=== PATIENT | male | born 1970 | race American Indian/Alaskan Native ===

== ENCOUNTER 2017-09-23 11:06 | Inpatient (IN) | payer SELFPAY ==
--- NOTE | 2017-09-23 12:31 | Emergency Department Report ---
ED General Adult HPI - General Chief complaint: High BP Stated complaint: HIGH BP Time Seen by Provider: 09/23/17 11:37 Source: patient Mode of arrival: Ambulatory Limitations: No Limitations - History of Present Illness Initial comments: mr Reynolds is a 47 year-old man with hx of HTN who presents from home with left arm weakness. Onset 130am. Was using intranasal cocaine/methamphetamine when symptoms began. left arm and leg tingling. left arm weakness. Left facial tingling. Denies any trouble speaking. Now with isoalted left arm weakness, other symptoms have resolved. No FISHMAN. No chest pain. No shortness of breath. Has been prescribed amlodipine 10mg and albuterol inhaler in the past, but has been out since moving to [facility] two months ago. No other complaints. -: Sudden - Related Data Allergies Allergy/AdvReac Type Severity Reaction Status Date / Time No Known Allergies Allergy Unverified 09/23/17 11:09 ED Review of Systems ROS: Stated complaint: HIGH BP Other details as noted in HPI Comment: All other systems reviewed and negative ED Past Medical Hx - Past Medical History Hx Hypertension: Yes Hx Asthma: Yes - Surgical History Past Surgical History?: No - Social History Smoking Status: Never Smoker Substance Use Type: Alcohol, Cocaine, Methamphetamines ED Physical Exam - General Limitations: No Limitations General appearance: alert, in no apparent distress - Head Head exam: Present: atraumatic, normocephalic - Eye Eye exam: Present: normal appearance, PERRL, EOMI. Absent: scleral icterus, conjunctival injection - ENT ENT exam: Present: normal exam, normal orophraynx, mucous membranes moist - Neck Neck exam: Present: normal inspection, full ROM. Absent: tenderness, meningismus - Respiratory Respiratory exam: Present: normal lung sounds bilaterally. Absent: respiratory distress, wheezes, rales - Cardiovascular Cardiovascular Exam: Present: normal rhythm, tachycardia. Absent: systolic murmur, diastolic murmur, rubs, gallop - GI/Abdominal GI/Abdominal exam: Present: soft. Absent: distended, tenderness, guarding - Rectal Rectal exam: Present: deferred - Extremities Exam Extremities exam: Present: normal inspection, other (isolated left radial nerve motor palsy). Absent: tenderness - Back Exam Back exam: Present: normal inspection. Absent: tenderness - Neurological Exam Neurological exam: Present: alert, oriented X3, CN II-XII intact, motor sensory deficit, other (NIHSS 0. isolated left radial motor palsy. normal UE exam, no drift). Absent: altered - Psychiatric Psychiatric exam: Present: normal affect, normal mood - Skin Skin exam: Present: warm, dry, intact, normal color. Absent: rash ED Course Vital Signs 09/23/17 11:09 Temperature 98.1 F Pulse Rate 116 H Respiratory 18 Rate Blood Pressure 179/96 O2 Sat by Pulse 96 Oximetry ED Medical Decision Making - Lab Data Result diagrams: 09/23/17 13:50 09/23/17 13:50 Lab Results 09/23/17 09/23/17 09/23/17 Range/Units 12:36 13:04 13:50 WBC 6.4 (4.5-11.0) K/mm3 RBC 3.97 (3.65-5.03) M/mm3 Hgb 12.9 (11.8-15.2) gm/dl Hct 38.2 (35.5-45.6) % MCV 96 H (84-94) fl MCH 32 (28-32) pg MCHC 34 (32-34) % RDW 13.2 (13.2-15.2) % Plt Count 220 (140-440) K/mm3 Lymph % (Auto) 23.3 (13.4-35.0) % [place] % (Auto) 11.8 H (0.0-7.3) % Eos % (Auto) 0.1 (0.0-4.3) % Baso % (Auto) 0.6 (0.0-1.8) % Lymph # 1.5 (1.2-5.4) K/mm3 [place] # 0.8 (0.0-0.8) K/mm3 Eos # 0.0 (0.0-0.4) K/mm3 Baso # 0.0 (0.0-0.1) K/mm3 Seg Neutrophils % 64.2 (40.0-70.0) % Seg Neutrophils # 4.1 (1.8-7.7) K/mm3 PT (12.2-14.9) Sec. INR (0.87-1.13) Sodium (137-145) mmol/L Potassium (3.6-5.0) mmol/L Chloride (98-107) mmol/L Carbon Dioxide (22-30) mmol/L Anion Gap mmol/L BUN (9-20) mg/dL Creatinine (0.8-1.5) mg/dL Estimated GFR ml/min BUN/Creatinine Ratio % Glucose (75-100) mg/dL Calcium (8.4-10.2) mg/dL Total Bilirubin (0.1-1.2) mg/dL AST (5-40) units/L ALT (7-56) units/L Alkaline Phosphatase (35-129) units/L Troponin T (0.00-0.029) ng/mL Total Protein (6.3-8.2) g/dL Albumin (3.9-5) g/dL Albumin/Globulin Ratio % Urine Color Yellow (Yellow) Urine Turbidity Clear (Clear) Urine pH 5.0 (5.0-7.0) Ur Specific [place] 1.014 (1.003-1.030) Urine Protein 30 mg/dl (Negative) mg/dL Urine Glucose (UA) Neg (Negative) mg/dL Urine Ketones Tr (Negative) mg/dL Urine Blood Neg (Negative) Urine Nitrite Neg (Negative) Urine Bilirubin Neg (Negative) Urine Urobilinogen < 2.0 (<2.0) mg/dL Ur Leukocyte Esterase Neg (Negative) Urine WBC (Auto) 1.0 (0.0-6.0) /HPF Urine RBC (Auto) 3.0 (0.0-6.0) /HPF Urine Mucus Few /HPF Urine Opiates Screen Presumptive negative Urine Methadone Screen Presumptive negative Ur Barbiturates Screen Presumptive negative Ur Phencyclidine Scrn Presumptive negative Ur Amphetamines Screen Presumptive negative U Benzodiazepines Scrn Presumptive negative Urine Cocaine Screen Presumptive positive U Marijuana (THC) Screen Presumptive negative Drugs of Abuse Note Disclamer Plasma/Serum Alcohol (0-0.07) % 09/23/17 09/23/17 09/23/17 Range/Units 13:50 13:50 13:50 WBC (4.5-11.0) K/mm3 RBC (3.65-5.03) M/mm3 Hgb (11.8-15.2) gm/dl Hct (35.5-45.6) % MCV (84-94) fl MCH (28-32) pg MCHC (32-34) % RDW (13.2-15.2) % Plt Count (140-440) K/mm3 Lymph % (Auto) (13.4-35.0) % [place] % (Auto) (0.0-7.3) % Eos % (Auto) (0.0-4.3) % Baso % (Auto) (0.0-1.8) % Lymph # (1.2-5.4) K/mm3 [place] # (0.0-0.8) K/mm3 Eos # (0.0-0.4) K/mm3 Baso # (0.0-0.1) K/mm3 Seg Neutrophils % (40.0-70.0) % Seg Neutrophils # (1.8-7.7) K/mm3 PT 12.6 (12.2-14.9) Sec. INR 0.90 (0.87-1.13) Sodium 140 (137-145) mmol/L Potassium 4.4 (3.6-5.0) mmol/L Chloride 97.7 L (98-107) mmol/L Carbon Dioxide 22 (22-30) mmol/L Anion Gap 25 mmol/L BUN 11 (9-20) mg/dL Creatinine 0.9 (0.8-1.5) mg/dL Estimated GFR > 60 ml/min BUN/Creatinine Ratio 12 % Glucose 77 (75-100) mg/dL Calcium 9.6 (8.4-10.2) mg/dL Total Bilirubin 0.90 (0.1-1.2) mg/dL AST 48 H (5-40) units/L ALT 37 (7-56) units/L Alkaline Phosphatase 82 (35-129) units/L Troponin T < 0.010 (0.00-0.029) ng/mL Total Protein 7.5 (6.3-8.2) g/dL Albumin 4.0 (3.9-5) g/dL Albumin/Globulin Ratio 1.1 % Urine Color (Yellow) Urine Turbidity (Clear) Urine pH (5.0-7.0) Ur Specific [place] (1.003-1.030) Urine Protein (Negative) mg/dL Urine Glucose (UA) (Negative) mg/dL Urine Ketones (Negative) mg/dL Urine Blood (Negative) Urine Nitrite (Negative) Urine Bilirubin (Negative) Urine Urobilinogen (<2.0) mg/dL Ur Leukocyte Esterase (Negative) Urine WBC (Auto) (0.0-6.0) /HPF Urine RBC (Auto) (0.0-6.0) /HPF Urine Mucus /HPF Urine Opiates Screen Urine Methadone Screen Ur Barbiturates Screen Ur Phencyclidine Scrn Ur Amphetamines Screen U Benzodiazepines Scrn Urine Cocaine Screen U Marijuana (THC) Screen Drugs of Abuse Note Plasma/Serum Alcohol 0.07 (0-0.07) % - EKG Data 09/23/17 13:11 HR 73, sinus, normal axis, intervals wnl, no ST changes concerning for acute ischemia, no previous - Radiology Data Radiology results: report reviewed, image reviewed FINAL REPORT EXAM: CT HEAD/BRAIN WO CON HISTORY: TIA TECHNIQUE: CT examination of the head without IV contrast PRIORS: None. FINDINGS: No acute air-fluid level visualized in the included air-filled sinuses. Bone windows demonstrate no acute fracture. The brain is without mass, mass effect, hemorrhage, or acute infarct. There is no extra-axial intracranial bleed, brain bleed, or midline shift. The ventricles and sulci are age-appropriate. IMPRESSION: No acute CVA, intracranial bleed, or brain mass - Medical Decision Making Mr Reynolds is a 47 year-old man with hx of HTN who presents with left arm weakness. using cocaine/amphetamine last night around 130 when he has onset of left sided tingling, left arm weakness. On exam, tachycardic, NIHSS 0 but with left radial nerve palsy. Reports sleeping in bed with nothing under his left arm. Suspect this is CVA TIA peripheral neuropraxia vs electrolyte derangement vs drug intoxication. ordering CT head, EKG, labs. CT head without abnormality. EKG non-ischemic. Trop neg. Lytes with mild hypoCl otherwise unremarkable. normal kidney function. normal CBC. UDS with cocaine. Alcohol 0.07. remains with left radial nerve deficit. Spoke with Dr Shay, Neurology. Recommends admission for TIA work-up. Could be small motor cortex stroke vs peripheral nerve injury vs TIA. Giving amlodipine 10mg, previous home med and aspirin. Critical care attestation.: If time is entered above; I have spent that time in minutes in the direct care of this critically ill patient, excluding procedure time. ED Disposition Clinical Impression: Focal neurological deficit TIA (transient ischemic attack) Qualifiers: Transient cerebral ischemia type: unspecified Qualified Code(s): G45.9 - Transient cerebral ischemic attack, unspecified Disposition: DC-09 OP ADMIT IP TO THIS HOSP Is pt being admited?: Yes Condition: Stable Instructions: Transient Ischemic Attack (ED) Referrals: PRIMARY CARE,MD [Primary Care Provider] - 3-5 Days
--- NOTE | 2017-09-23 12:42 | Cat Scan Report ---
FINAL REPORT EXAM: CT HEAD/BRAIN WO CON HISTORY: TIA TECHNIQUE: CT examination of the head without IV contrast PRIORS: None. FINDINGS: No acute air-fluid level visualized in the included air-filled sinuses. Bone windows demonstrate no acute fracture. The brain is without mass, mass effect, hemorrhage, or acute infarct. There is no extra-axial intracranial bleed, brain bleed, or midline shift. The ventricles and sulci are age-appropriate. IMPRESSION: No acute CVA, intracranial bleed, or brain mass
[2017-09-23 13:23] LABS: Bilirubin,Urine NEG (Negative); Blood,Urine NEG (Negative); Color,Urine Yellow (Yellow); Mucus,Urine FEW /HPF; Urobilinogen,Urine < 2.0 mg/dL (<2.0)
[2017-09-23 13:33] LABS: Amphetamine Screen,Urine PRESUMPTIVE NEGATIVE; Benzodiazepines Screen,Urine PRESUMPTIVE NEGATIVE; Cannabinoid Screen,Urine PRESUMPTIVE NEGATIVE; Methadone Screen,Urine PRESUMPTIVE NEGATIVE; Opiate Screen,Urine PRESUMPTIVE NEGATIVE
[2017-09-23 14:03] LABS: Basophils % (Auto) 0.6 % (0.0-1.8); Eosinophils % (Auto) 0.1 % (0.0-4.3); Hematocrit 38.2 % (35.5-45.6); Hemoglobin 12.9 gm/dl (11.8-15.2); Lymphocytes # (Auto) 1.5 K/mm3 (1.2-5.4); Lymphocytes % (Auto) 23.3 % (13.4-35.0); Mean Corpuscular HGB Conc 34 % (32-34); Mean Corpuscular Hemoglobin 32 pg (28-32); Mean Corpuscular Volume 96 fl (84-94); Monocytes # (Auto) 0.8 K/mm3 (0.0-0.8); Monocytes % (Auto) 11.8 % (0.0-7.3); Platelet Count 220 K/mm3 (140-440); Red Blood Count 3.97 M/mm3 (3.65-5.03); Red Cell Distribution Width 13.2 % (13.2-15.2)
[2017-09-23 14:13] LABS: INR 0.9 (0.87-1.13)
[2017-09-23 14:21] LABS: Alanine Aminotransferase 37 units/L (7-56); BUN/Creatinine Ratio 12; Blood Urea Nitrogen 11 mg/dL (9-20); Calcium 9.6 mg/dL (8.4-10.2); Hemolysis Index 61
[2017-09-23 14:23] LABS: Cocaine Screen,Urine PRESUMPTIVE POSITIVE
[2017-09-23] MEDS ORDERED: NORVASC PO ONE (14:55)
[2017-09-23] MEDS ORDERED: BABY ASPIRIN PO ONE (14:55)
[2017-09-23] MEDS ORDERED: MOTRIN PO ONE (17:34)
[2017-09-23] MEDS ORDERED: ZOFRAN IV PRN (20:54)
[2017-09-23] MEDS ORDERED: SODIUM CHLORIDE FLUSH SYRINGE 10 ML IV PRN ×2 (20:54→20:59)
[2017-09-23] MEDS ORDERED: MORPHINE IV PRN (20:54)
[2017-09-23] MEDS ORDERED: TYLENOL PO PRN (20:54)
--- NOTE | 2017-09-23 20:54 | History and Physical Report ---
History of Present Illness Date of examination: 09/23/17 Date of admission: 09/23/17 14:59 Chief complaint: CC L side weakness and numbness since 130am History of present illness: History of Present Illness 47 year-old man with hx of HTN presents from home with left side numbness since 130am. Was using intranasal cocaine/methamphetamine when symptoms began. Developed left arm and leg numbness and tingling. Left arm weakness. Left facial tingling. Denies any trouble speaking. Now with isoalted left arm weakness, other symptoms have resolved. No FISHMAN. No chest pain. No shortness of breath. Has been prescribed amlodipine 10mg and albuterol inhaler in the past, but has been out since moving to [facility] two months ago. No other complaints. Past Medical History Hx Hypertension: Yes Hx Asthma: Yes Surgical History Past Surgical History?: No Social History Smoking Status: Never Smoker Substance Use Type: Alcohol, Cocaine, Methamphetamines Family History Htn Review of Systems ROS: Stated complaint: HIGH BP Other details as noted in HPI Comment: All other systems reviewed and negative Medications and Allergies Allergies Allergy/AdvReac Type Severity Reaction Status Date / Time No Known Allergies Allergy Unverified 09/23/17 11:09 Exam - Constitutional Vitals: Temp Pulse Resp BP Pulse Ox 97.8 F 69 18 169/92 99 09/23/17 18:00 09/23/17 18:31 09/23/17 18:31 09/23/17 18:31 09/23/17 18:31 General appearance: Present: no acute distress, well-nourished - EENT Eyes: Present: PERRL ENT: hearing intact, clear oral mucosa - Neck Neck: Present: supple, normal ROM - Respiratory Respiratory effort: normal Respiratory: bilateral: CTA - Cardiovascular Heart rate: 78 Rhythm: regular Heart Sounds: Present: S1 & S2. Absent: rub, click - Extremities Extremities: no ischemia, pulses intact, pulses symmetrical, No edema Peripheral Pulses: within normal limits - Abdominal General gastrointestinal: Present: soft, non-tender, non-distended, normal bowel sounds Male genitourinary: Present: normal - Rectal Rectal Exam: deferred - Integumentary Integumentary: Present: clear, warm, dry - Musculoskeletal Musculoskeletal: gait normal, strength equal bilaterally - Psychiatric Psychiatric: appropriate mood/affect, intact judgment & insight - Neurologic Neurologic: CNII-XII intact, moves all extremities - Allied Health Allied health notes reviewed: nursing, case management Results - Labs CBC & Chem 7: 09/23/17 13:50 09/23/17 13:50 Labs: Laboratory Last Values WBC 6.4 K/mm3 (4.5-11.0) 09/23/17 13:50 RBC 3.97 M/mm3 (3.65-5.03) 09/23/17 13:50 Hgb 12.9 gm/dl (11.8-15.2) 09/23/17 13:50 Hct 38.2 % (35.5-45.6) 09/23/17 13:50 MCV 96 fl (84-94) H 09/23/17 13:50 MCH 32 pg (28-32) 09/23/17 13:50 MCHC 34 % (32-34) 09/23/17 13:50 RDW 13.2 % (13.2-15.2) 09/23/17 13:50 Plt Count 220 K/mm3 (140-440) 09/23/17 13:50 Lymph % (Auto) 23.3 % (13.4-35.0) 09/23/17 13:50 [place] % (Auto) 11.8 % (0.0-7.3) H 09/23/17 13:50 Eos % (Auto) 0.1 % (0.0-4.3) 09/23/17 13:50 Baso % (Auto) 0.6 % (0.0-1.8) 09/23/17 13:50 Lymph # 1.5 K/mm3 (1.2-5.4) 09/23/17 13:50 [place] # 0.8 K/mm3 (0.0-0.8) 09/23/17 13:50 Eos # 0.0 K/mm3 (0.0-0.4) 09/23/17 13:50 Baso # 0.0 K/mm3 (0.0-0.1) 09/23/17 13:50 Seg Neutrophils % 64.2 % (40.0-70.0) 09/23/17 13:50 Seg Neutrophils # 4.1 K/mm3 (1.8-7.7) 09/23/17 13:50 PT 12.6 Sec. (12.2-14.9) 09/23/17 13:50 INR 0.90 (0.87-1.13) 09/23/17 13:50 Sodium 140 mmol/L (137-145) 09/23/17 13:50 Potassium 4.4 mmol/L (3.6-5.0) 09/23/17 13:50 Chloride 97.7 mmol/L (98-107) L 09/23/17 13:50 Carbon Dioxide 22 mmol/L (22-30) 09/23/17 13:50 Anion Gap 25 mmol/L 09/23/17 13:50 BUN 11 mg/dL (9-20) 09/23/17 13:50 Creatinine 0.9 mg/dL (0.8-1.5) 09/23/17 13:50 Estimated GFR > 60 ml/min 09/23/17 13:50 BUN/Creatinine Ratio 12 % 09/23/17 13:50 Glucose 77 mg/dL (75-100) 09/23/17 13:50 Calcium 9.6 mg/dL (8.4-10.2) 09/23/17 13:50 Total Bilirubin 0.90 mg/dL (0.1-1.2) 09/23/17 13:50 AST 48 units/L (5-40) H 09/23/17 13:50 ALT 37 units/L (7-56) 09/23/17 13:50 Alkaline Phosphatase 82 units/L (35-129) 09/23/17 13:50 Troponin T < 0.010 ng/mL (0.00-0.029) 09/23/17 13:50 Total Protein 7.5 g/dL (6.3-8.2) 09/23/17 13:50 Albumin 4.0 g/dL (3.9-5) 09/23/17 13:50 Albumin/Globulin Ratio 1.1 % 09/23/17 13:50 Urine Color Yellow (Yellow) 09/23/17 13:04 Urine Turbidity Clear (Clear) 09/23/17 13:04 Urine pH 5.0 (5.0-7.0) 09/23/17 13:04 Ur Specific [place] 1.014 (1.003-1.030) 09/23/17 13:04 Urine Protein 30 mg/dl mg/dL (Negative) 09/23/17 13:04 Urine Glucose (UA) Neg mg/dL (Negative) 09/23/17 13:04 Urine Ketones Tr mg/dL (Negative) 09/23/17 13:04 Urine Blood Neg (Negative) 09/23/17 13:04 Urine Nitrite Neg (Negative) 09/23/17 13:04 Urine Bilirubin Neg (Negative) 09/23/17 13:04 Urine Urobilinogen < 2.0 mg/dL (<2.0) 09/23/17 13:04 Ur Leukocyte Esterase Neg (Negative) 09/23/17 13:04 Urine WBC (Auto) 1.0 /HPF (0.0-6.0) 09/23/17 13:04 Urine RBC (Auto) 3.0 /HPF (0.0-6.0) 09/23/17 13:04 Urine Mucus Few /HPF 09/23/17 13:04 Urine Opiates Screen Presumptive negative 09/23/17 12:36 Urine Methadone Screen Presumptive negative 09/23/17 12:36 Ur Barbiturates Screen Presumptive negative 09/23/17 12:36 Ur Phencyclidine Scrn Presumptive negative 09/23/17 12:36 Ur Amphetamines Screen Presumptive negative 09/23/17 12:36 U Benzodiazepines Scrn Presumptive negative 09/23/17 12:36 Urine Cocaine Screen Presumptive positive 09/23/17 12:36 U Marijuana (THC) Screen Presumptive negative 09/23/17 12:36 Drugs of Abuse Note Disclamer 09/23/17 12:36 Plasma/Serum Alcohol 0.07 % (0-0.07) 09/23/17 13:50 Short CBC 09/23/17 Range/Units 13:50 WBC 6.4 (4.5-11.0) K/mm3 Hgb 12.9 (11.8-15.2) gm/dl Hct 38.2 (35.5-45.6) % Plt Count 220 (140-440) K/mm3 BMP 09/23/17 13:50 Sodium 140 Potassium 4.4 Chloride 97.7 L Carbon Dioxide 22 BUN 11 Creatinine 0.9 Glucose 77 Calcium 9.6 Cardiac Enzymes 09/23/17 Range/Units 13:50 Troponin T < 0.010 (0.00-0.029) ng/mL Liver Function 09/23/17 Range/Units 13:50 Total Bilirubin 0.90 (0.1-1.2) mg/dL AST 48 H (5-40) units/L ALT 37 (7-56) units/L Alkaline Phosphatase 82 (35-129) units/L Albumin 4.0 (3.9-5) g/dL Urine 09/23/17 Range/Units 13:04 Urine Color Yellow (Yellow) Urine pH 5.0 (5.0-7.0) Ur Specific [place] 1.014 (1.003-1.030) Urine Protein 30 mg/dl (Negative) mg/dL Urine Glucose (UA) Neg (Negative) mg/dL - Imaging and Cardiology EKG: report reviewed CT Scan - head: report reviewed (NAF) Assessment and Plan Advance Directives: Yes (Full code) VTE prophylaxis?: Chemical Plan of care discussed with patient/family: Yes - Patient Problems (1) TIA (transient ischemic attack) Current Visit: Yes Status: Acute Qualifiers: Transient cerebral ischemia type: carotid artery syndrome (hemispheric) Qualified Code(s): G45.1 - Carotid artery syndrome (hemispheric) Plan to address problem: TIA work up MRI /MRA/ECHO/CDS ordered (2) HTN (hypertension) Current Visit: Yes Status: Chronic Qualifiers: Hypertension type: essential hypertension Qualified Code(s): I10 - Essential (primary) hypertension Plan to address problem: Cont antihypertensives (3) Cocaine abuse Current Visit: Yes Status: Chronic Plan to address problem: Counselled (4) DVT prophylaxis Current Visit: Yes Status: Acute Plan to address problem: On Lovenox
[2017-09-23] MEDS: SODIUM CHLORIDE FLUSH SYRINGE 10 ML IV SCH (23:16)
[2017-09-23] MEDS: PEPCID IV SCH (23:16)
[2017-09-23] MEDS: NACL 0.9% 1000 ML 1,000 ML IV SCH (23:26)
--- NOTE | 2017-09-24 09:13 | Progress Note ---
Assessment and Plan Assessment and plan: --Acute CVA/TIA Not a candidate for TPA Neuro workup is in progress, Aspirin and statin Lipid panel , neurology consult --Hypertension; moderate control Continue current antihypertensives and when necessary medications Permissive hypertension per stroke protocol --Substance abuse/cocaine use counseling done patient strongly advised to quit recreational drug Verbalized understanding --DVT prophylaxis; Lovenox Follow neuro workup Physical therapy and occupational therapy Follow urology evaluation and recommendations Plan of care discussed with the patient and his nurse History Interval history: Patient seen and examined medical records reviewed Feels slightly better complaints of left arm weakness Neuro workup is in progress complaints of some leg cramps Awake oriented 3 not in acute distress vital signs reviewed Hospitalist Physical - Constitutional Vitals: Temp Pulse Resp BP Pulse Ox 98.4 F 61 20 141/98 98 09/24/17 08:20 09/24/17 08:20 09/24/17 08:20 09/24/17 08:20 09/24/17 08:20 General appearance: Present: no acute distress, well-nourished - EENT Eyes: Present: PERRL, EOM intact - Neck Neck: Present: supple, normal ROM - Respiratory Respiratory effort: normal Respiratory: negative: rales, rhonchi, wheezing - Cardiovascular Rhythm: regular Heart Sounds: Present: S1 & S2 - Extremities Extremities: no ischemia, No edema, abnormal (left wrist weakness unable to dorsiflex,? wrist drop) - Abdominal General gastrointestinal: soft, non-tender, non-distended, normal bowel sounds - Integumentary Integumentary: Present: clear, warm - Psychiatric Psychiatric: appropriate mood/affect, cooperative - Neurologic Neurologic: CNII-XII intact, moves all extremities Results - Labs CBC & Chem 7: 09/23/17 13:50 09/24/17 12:29 Labs: Laboratory Last Values WBC 6.4 K/mm3 (4.5-11.0) 09/23/17 13:50 RBC 3.97 M/mm3 (3.65-5.03) 09/23/17 13:50 Hgb 12.9 gm/dl (11.8-15.2) 09/23/17 13:50 Hct 38.2 % (35.5-45.6) 09/23/17 13:50 MCV 96 fl (84-94) H 09/23/17 13:50 MCH 32 pg (28-32) 09/23/17 13:50 MCHC 34 % (32-34) 09/23/17 13:50 RDW 13.2 % (13.2-15.2) 09/23/17 13:50 Plt Count 220 K/mm3 (140-440) 09/23/17 13:50 Lymph % (Auto) 23.3 % (13.4-35.0) 09/23/17 13:50 [place] % (Auto) 11.8 % (0.0-7.3) H 09/23/17 13:50 Eos % (Auto) 0.1 % (0.0-4.3) 09/23/17 13:50 Baso % (Auto) 0.6 % (0.0-1.8) 09/23/17 13:50 Lymph # 1.5 K/mm3 (1.2-5.4) 09/23/17 13:50 [place] # 0.8 K/mm3 (0.0-0.8) 09/23/17 13:50 Eos # 0.0 K/mm3 (0.0-0.4) 09/23/17 13:50 Baso # 0.0 K/mm3 (0.0-0.1) 09/23/17 13:50 Seg Neutrophils % 64.2 % (40.0-70.0) 09/23/17 13:50 Seg Neutrophils # 4.1 K/mm3 (1.8-7.7) 09/23/17 13:50 PT 12.6 Sec. (12.2-14.9) 09/23/17 13:50 INR 0.90 (0.87-1.13) 09/23/17 13:50 Sodium 140 mmol/L (137-145) 09/23/17 13:50 Potassium 4.4 mmol/L (3.6-5.0) 09/23/17 13:50 Chloride 97.7 mmol/L (98-107) L 09/23/17 13:50 Carbon Dioxide 22 mmol/L (22-30) 09/23/17 13:50 Anion Gap 25 mmol/L 09/23/17 13:50 BUN 11 mg/dL (9-20) 09/23/17 13:50 Creatinine 0.9 mg/dL (0.8-1.5) 09/23/17 13:50 Estimated GFR > 60 ml/min 09/23/17 13:50 BUN/Creatinine Ratio 12 % 09/23/17 13:50 Glucose 77 mg/dL (75-100) 09/23/17 13:50 Hemoglobin A1c 5.0 % (4-6) 09/23/17 13:50 Calcium 9.6 mg/dL (8.4-10.2) 09/23/17 13:50 Total Bilirubin 0.90 mg/dL (0.1-1.2) 09/23/17 13:50 AST 48 units/L (5-40) H 09/23/17 13:50 ALT 37 units/L (7-56) 09/23/17 13:50 Alkaline Phosphatase 82 units/L (35-129) 09/23/17 13:50 Troponin T < 0.010 ng/mL (0.00-0.029) 09/23/17 13:50 Total Protein 7.5 g/dL (6.3-8.2) 09/23/17 13:50 Albumin 4.0 g/dL (3.9-5) 09/23/17 13:50 Albumin/Globulin Ratio 1.1 % 09/23/17 13:50 Urine Color Yellow (Yellow) 09/23/17 13:04 Urine Turbidity Clear (Clear) 09/23/17 13:04 Urine pH 5.0 (5.0-7.0) 09/23/17 13:04 Ur Specific [place] 1.014 (1.003-1.030) 09/23/17 13:04 Urine Protein 30 mg/dl mg/dL (Negative) 09/23/17 13:04 Urine Glucose (UA) Neg mg/dL (Negative) 09/23/17 13:04 Urine Ketones Tr mg/dL (Negative) 09/23/17 13:04 Urine Blood Neg (Negative) 09/23/17 13:04 Urine Nitrite Neg (Negative) 09/23/17 13:04 Urine Bilirubin Neg (Negative) 09/23/17 13:04 Urine Urobilinogen < 2.0 mg/dL (<2.0) 09/23/17 13:04 Ur Leukocyte Esterase Neg (Negative) 09/23/17 13:04 Urine WBC (Auto) 1.0 /HPF (0.0-6.0) 09/23/17 13:04 Urine RBC (Auto) 3.0 /HPF (0.0-6.0) 09/23/17 13:04 Urine Mucus Few /HPF 09/23/17 13:04 Urine Opiates Screen Presumptive negative 09/23/17 12:36 Urine Methadone Screen Presumptive negative 09/23/17 12:36 Ur Barbiturates Screen Presumptive negative 09/23/17 12:36 Ur Phencyclidine Scrn Presumptive negative 09/23/17 12:36 Ur Amphetamines Screen Presumptive negative 09/23/17 12:36 U Benzodiazepines Scrn Presumptive negative 09/23/17 12:36 Urine Cocaine Screen Presumptive positive 09/23/17 12:36 U Marijuana (THC) Screen Presumptive negative 09/23/17 12:36 Drugs of Abuse Note Disclamer 09/23/17 12:36 Plasma/Serum Alcohol 0.07 % (0-0.07) 09/23/17 13:50
--- NOTE | 2017-09-24 11:45 | Consultation ---
History of Present Illness Consult date: 09/24/17 History of present illness: went over the initial iamges of the MRI and MRA and my review is the MRA looks iniitially OK full report to follow all images of the MRI not back the ct of the head is normal for age Medications and Allergies Allergies Allergy/AdvReac Type Severity Reaction Status Date / Time No Known Allergies Allergy Unverified 09/23/17 11:09 Home Medications Medication Instructions Recorded Confirmed Last Taken Type amLODIPine [Norvasc] 10 mg PO DAILY 09/24/17 09/24/17 1 Day Ago History ~09/23/17 10 mg Active Meds: Active Medications Acetaminophen (Tylenol) 650 mg PO Q4H PRN PRN Reason: Pain MILD(1-3)/Fever >100.5/FISHMAN Amlodipine Besylate (Norvasc) 10 mg PO DAILY [facility] Aspirin (Aspirin) 81 mg PO QDAY [facility] Atorvastatin Calcium (Lipitor) 40 mg PO QHS [facility] Last Admin: 09/23/17 23:15 Dose: 40 mg Enoxaparin Sodium (Lovenox) 40 mg SUB-Q QDAY@2200 [facility] Famotidine (Pepcid) 20 mg IV BID [facility] Last Admin: 09/23/17 23:16 Dose: 20 mg Sodium Chloride (Nacl 0.9% 1000 Ml) 1,000 mls @ 75 mls/hr IV DIRECT [facility] Last Admin: 09/23/17 23:26 Dose: 75 mls/hr Losartan Potassium (Cozaar) 50 mg PO QDAY [facility] Morphine Sulfate (Morphine) 2 mg IV Q4H PRN PRN Reason: Pain, Moderate (4-6) Ondansetron HCl (Zofran) 4 mg IV Q8H PRN PRN Reason: Nausea And Vomiting Oxycodone/Acetaminophen (Percocet 5/325) 1 tab PO Q6H PRN PRN Reason: Pain, Moderate (4-6) Sodium Chloride (Sodium Chloride Flush Syringe 10 Ml) 10 ml IV BID [facility] Last Admin: 09/23/17 23:16 Dose: 10 ml Sodium Chloride (Sodium Chloride Flush Syringe 10 Ml) 10 ml IV PRN PRN PRN Reason: LINE FLUSH Sodium Chloride (Sodium Chloride Flush Syringe 10 Ml) 10 ml IV PRN PRN PRN Reason: LINE FLUSH Physical Examination - Vital Signs Vital Signs: Vital Signs Temp Pulse Resp BP Pulse Ox 98.1 F 116 H 18 179/96 96 09/23/17 11:09 09/23/17 11:09 09/23/17 11:09 09/23/17 11:09 09/23/17 11:09 Results - Laboratory Findings CBC and BMP: 09/23/17 13:50 09/23/17 13:50 Abnormal Lab Findings: Abnormal Labs 09/23/17 09/23/17 13:50 13:50 MCV 96 H Centre % (Auto) 11.8 H Chloride 97.7 L AST 48 H
--- NOTE | 2017-09-24 12:42 | Magnetic Resonance Report ---
FINAL REPORT EXAM: MR MRA/MRV HEAD WO CON HISTORY: stroke TECHNIQUE: MRA of the Head without IV contrast. PRIORS: None currently available. FINDINGS: HEAD: The anterior and posterior circulations appear unremarkable. There is no aneurysm, dissection, vascular malformation, or significant vascular stenosis. There is no evidence for vasculitis. IMPRESSION: Unremarkable.
--- NOTE | 2017-09-24 12:48 | Magnetic Resonance Report ---
FINAL REPORT EXAM: MR BRAIN WO CON HISTORY: stroke TECHNIQUE: MRI of the brain without IV contrast. PRIORS: None currently available. FINDINGS: Midline structures are unremarkable. There is no tonsillar ectopy. Age appropriate negrete-white matter differentiation is noted. There is no hydrocephalus. There is no mass. There is no hemorrhage. There is no midline shift. There is no restricted diffusion to suggest acute ischemia. The CP angles are grossly noted. Major flow voids are present. Paranasal sinuses are unremarkable. Globes are intact. Calvarial signal characteristics are grossly unremarkable. Extracranial soft tissues are intact. IMPRESSION: No acute intracranial findings.
[2017-09-24] MEDS: COZAAR PO SCH (12:55)
[2017-09-24] MEDS: NORVASC PO SCH (12:56)
[2017-09-24] MEDS: ASPIRIN PO SCH (12:56)
[2017-09-24] MEDS: SODIUM CHLORIDE FLUSH SYRINGE 10 ML IV SCH (12:57)
[2017-09-24] MEDS: PEPCID IV SCH (12:57)
[2017-09-24] MEDS: PERCOCET 5/325 PO PRN ×2 (12:58→20:10)
[2017-09-24 13:30] LABS: Alanine Aminotransferase 46 units/L (7-56); Albumin 4.4 g/dL (3.9-5); BUN/Creatinine Ratio 17; Blood Urea Nitrogen 17 mg/dL (9-20); Calcium 9.9 mg/dL (8.4-10.2); Chol/HDL Ratio 1.58 %; HDL Cholesterol 96 mg/dL (40-59); Hemolysis Index 27; LDL Cholesterol,Direct 61 mg/dL (50-130)
[2017-09-24 16:58] LABS: Basophils # (Auto) 0.1 K/mm3 (0.0-0.1); Eosinophils # (Auto) 0.1 K/mm3 (0.0-0.4); Eosinophils % (Auto) 2.4 % (0.0-4.3); Monocytes # (Auto) 0.9 K/mm3 (0.0-0.8)
[2017-09-24 17:21] LABS: Lymphocytes % (Auto) 25.3 % (13.4-35.0); Monocytes % (Auto) 15.5 % (0.0-7.3)
[2017-09-24 17:22] LABS: Basophils % (Auto) 1.1 % (0.0-1.8); Lymphocytes # (Auto) 1.5 K/mm3 (1.2-5.4)
[2017-09-24 17:24] LABS: Hematocrit 42.4 % (35.5-45.6); Hemoglobin 14.3 gm/dl (11.8-15.2); Mean Corpuscular Volume 97 fl (84-94); Red Blood Count 4.37 M/mm3 (3.65-5.03)
[2017-09-24 17:25] LABS: Mean Corpuscular HGB Conc 34 % (32-34); Mean Corpuscular Hemoglobin 33 pg (28-32); Platelet Count 236 K/mm3 (140-440); Red Cell Distribution Width 13.4 % (13.2-15.2)
[2017-09-24] MEDS: NACL 0.9% 1000 ML 1,000 ML IV SCH (19:04)
[2017-09-25] MEDS: PEPCID IV SCH ×2 (00:26→09:30)
[2017-09-25] MEDS: SODIUM CHLORIDE FLUSH SYRINGE 10 ML IV SCH ×3 (00:26→22:37)
[2017-09-25] MEDS: LOVENOX SUB-Q SCH ×2 (00:26→22:37)
[2017-09-25] MEDS: PERCOCET 5/325 PO PRN ×3 (06:38→20:22)
[2017-09-25] MEDS: NORVASC PO SCH (09:29)
[2017-09-25] MEDS: COZAAR PO SCH (09:29)
[2017-09-25] MEDS: ASPIRIN PO SCH (09:29)
--- NOTE | 2017-09-25 13:44 | Progress Note ---
Subjective Date of service: 09/25/17 Interval history: suspect wrist drop is peripheral radial palsy please fit with splint I will follow up on in office likely all this is drug induced from vasospasm spoke with Dr. Underwood Objective - Vital Sign Vital Signs - 12hr 09/25/17 09/25/17 09/25/17 05:05 06:38 08:04 Temperature 98.6 F 98.3 F Pulse Rate 57 L 59 L Respiratory 18 20 20 Rate Blood Pressure 116/79 144/97 O2 Sat by Pulse 98 99 Oximetry 09/25/17 09/25/17 09/25/17 09:29 10:00 11:35 Temperature 98.4 F Pulse Rate 56 L Respiratory 20 20 Rate Blood Pressure 144/97 124/86 O2 Sat by Pulse 97 Oximetry - Laboratory Findings CBC and BMP: 09/24/17 15:13 09/24/17 12:29 Abnormal Lab Findings: Abnormal Labs 09/23/17 09/23/17 09/24/17 13:50 13:50 12:29 MCV 96 H MCH [place] % (Auto) 11.8 H [place] # Chloride 97.7 L AST 48 H 52 H HDL Cholesterol 96 H 09/24/17 15:13 MCV 97 H MCH 33 H [place] % (Auto) 15.5 H [place] # 0.9 H Chloride AST HDL Cholesterol
--- NOTE | 2017-09-25 18:00 | Progress Note ---
Assessment and Plan Assessment and plan: --Acute CVA/TIA Not a candidate for TPA or thrombectomy Neuro workup so far is negative Continue aspirin and statin, PTOT neurology following --Left wrist drop; physical therapy Wrist brace, follow neurology as outpatient upon discharge --Hypertension; moderate control Continue current antihypertensives and when necessary medications Permissive hypertension per stroke protocol --Substance abuse/cocaine use counseling done patient strongly advised to quit recreational drug Verbalized understanding --DVT prophylaxis; Lovenox Closely monitor the patient and adjust the management Possible discharge home tomorrow if stable History Interval history: Patient seen and examined medical records reviewed Feels slightly better still has weakness of the wrist unable to extend Possible wrist drop Alert awake oriented 3 not in acute distress Vital signs reviewed Hospitalist Physical - Constitutional Vitals: Temp Pulse Resp BP Pulse Ox 98.3 F 67 20 143/87 95 09/25/17 16:45 09/25/17 16:45 09/25/17 16:45 09/25/17 16:45 09/25/17 16:45 General appearance: Present: no acute distress, well-nourished - EENT Eyes: Present: PERRL, EOM intact - Neck Neck: Present: supple, normal ROM - Respiratory Respiratory effort: normal Respiratory: negative: rales, rhonchi, wheezing - Cardiovascular Rhythm: regular Heart Sounds: Present: S1 & S2 - Extremities Extremities: no ischemia, No edema - Abdominal General gastrointestinal: soft, non-tender, non-distended, normal bowel sounds - Integumentary Integumentary: Present: clear, warm - Psychiatric Psychiatric: appropriate mood/affect, cooperative - Neurologic Neurologic: CNII-XII intact, moves all extremities (left wrist drop) Results - Labs CBC & Chem 7: 09/24/17 15:13 09/24/17 12:29 Labs: Laboratory Last Values WBC 6.0 K/mm3 (4.5-11.0) 09/24/17 15:13 RBC 4.37 M/mm3 (3.65-5.03) 09/24/17 15:13 Hgb 14.3 gm/dl (11.8-15.2) 09/24/17 15:13 Hct 42.4 % (35.5-45.6) 09/24/17 15:13 MCV 97 fl (84-94) H 09/24/17 15:13 MCH 33 pg (28-32) H 09/24/17 15:13 MCHC 34 % (32-34) 09/24/17 15:13 RDW 13.4 % (13.2-15.2) 09/24/17 15:13 Plt Count 236 K/mm3 (140-440) 09/24/17 15:13 Lymph % (Auto) 25.3 % (13.4-35.0) 09/24/17 15:13 [place] % (Auto) 15.5 % (0.0-7.3) H 09/24/17 15:13 Eos % (Auto) 2.4 % (0.0-4.3) 09/24/17 15:13 Baso % (Auto) 1.1 % (0.0-1.8) 09/24/17 15:13 Lymph # 1.5 K/mm3 (1.2-5.4) 09/24/17 15:13 [place] # 0.9 K/mm3 (0.0-0.8) H 09/24/17 15:13 Eos # 0.1 K/mm3 (0.0-0.4) 09/24/17 15:13 Baso # 0.1 K/mm3 (0.0-0.1) 09/24/17 15:13 Seg Neutrophils % 55.7 % (40.0-70.0) 09/24/17 15:13 Seg Neutrophils # 3.3 K/mm3 (1.8-7.7) 09/24/17 15:13 PT 12.6 Sec. (12.2-14.9) 09/23/17 13:50 INR 0.90 (0.87-1.13) 09/23/17 13:50 Sodium 140 mmol/L (137-145) 09/24/17 12:29 Potassium 4.7 mmol/L (3.6-5.0) 09/24/17 12:29 Chloride 100.2 mmol/L (98-107) 09/24/17 12:29 Carbon Dioxide 23 mmol/L (22-30) 09/24/17 12:29 Anion Gap 22 mmol/L 09/24/17 12:29 BUN 17 mg/dL (9-20) 09/24/17 12:29 Creatinine 1.0 mg/dL (0.8-1.5) 09/24/17 12:29 Estimated GFR > 60 ml/min 09/24/17 12:29 BUN/Creatinine Ratio 17 % 09/24/17 12:29 Glucose 92 mg/dL (75-100) 09/24/17 12:29 Hemoglobin A1c 5.0 % (4-6) 09/23/17 13:50 Calcium 9.9 mg/dL (8.4-10.2) 09/24/17 12:29 Total Bilirubin 1.00 mg/dL (0.1-1.2) 09/24/17 12:29 AST 52 units/L (5-40) H 09/24/17 12:29 ALT 46 units/L (7-56) 09/24/17 12:29 Alkaline Phosphatase 90 units/L (35-129) 09/24/17 12:29 Troponin T < 0.010 ng/mL (0.00-0.029) 09/23/17 13:50 Total Protein 8.1 g/dL (6.3-8.2) 09/24/17 12:29 Albumin 4.4 g/dL (3.9-5) 09/24/17 12:29 Albumin/Globulin Ratio 1.2 % 09/24/17 12:29 Triglycerides 55 mg/dL (2-149) 09/24/17 12:29 Cholesterol 152 mg/dL (50-199) 09/24/17 12:29 LDL Cholesterol Direct 61 mg/dL (50-130) 09/24/17 12:29 HDL Cholesterol 96 mg/dL (40-59) H 09/24/17 12:29 Cholesterol/HDL Ratio 1.58 % 09/24/17 12:29 Urine Color Yellow (Yellow) 09/23/17 13:04 Urine Turbidity Clear (Clear) 09/23/17 13:04 Urine pH 5.0 (5.0-7.0) 09/23/17 13:04 Ur Specific [place] 1.014 (1.003-1.030) 09/23/17 13:04 Urine Protein 30 mg/dl mg/dL (Negative) 09/23/17 13:04 Urine Glucose (UA) Neg mg/dL (Negative) 09/23/17 13:04 Urine Ketones Tr mg/dL (Negative) 09/23/17 13:04 Urine Blood Neg (Negative) 09/23/17 13:04 Urine Nitrite Neg (Negative) 09/23/17 13:04 Urine Bilirubin Neg (Negative) 09/23/17 13:04 Urine Urobilinogen < 2.0 mg/dL (<2.0) 09/23/17 13:04 Ur Leukocyte Esterase Neg (Negative) 09/23/17 13:04 Urine WBC (Auto) 1.0 /HPF (0.0-6.0) 09/23/17 13:04 Urine RBC (Auto) 3.0 /HPF (0.0-6.0) 09/23/17 13:04 Urine Mucus Few /HPF 09/23/17 13:04 Urine Opiates Screen Presumptive negative 09/23/17 12:36 Urine Methadone Screen Presumptive negative 09/23/17 12:36 Ur Barbiturates Screen Presumptive negative 09/23/17 12:36 Ur Phencyclidine Scrn Presumptive negative 09/23/17 12:36 Ur Amphetamines Screen Presumptive negative 09/23/17 12:36 U Benzodiazepines Scrn Presumptive negative 09/23/17 12:36 Urine Cocaine Screen Presumptive positive 09/23/17 12:36 U Marijuana (THC) Screen Presumptive negative 09/23/17 12:36 Drugs of Abuse Note Disclamer 09/23/17 12:36 Plasma/Serum Alcohol 0.07 % (0-0.07) 09/23/17 13:50
[2017-09-25] MEDS: PEPCID PO SCH (22:37)
[2017-09-26] MEDS: PERCOCET 5/325 PO PRN ×2 (02:18→09:47)
[2017-09-26] MEDS: NACL 0.9% 1000 ML 1,000 ML IV SCH (02:20)
[2017-09-26] MEDS: NORVASC PO SCH (09:46)
[2017-09-26] MEDS: PEPCID PO SCH (09:46)
[2017-09-26] MEDS: SODIUM CHLORIDE FLUSH SYRINGE 10 ML IV SCH (09:48)
[2017-09-26] MEDS ORDERED: BABY ASPIRIN PO SCH (10:00)
--- NOTE | 2017-09-26 10:13 | Discharge Summary ---
Providers - Providers Date of Admission: 09/23/17 14:59 Date of discharge: 09/26/17 Attending physician: HERBIE ANDRES 09/23/17 20:54 Consult to Physician [CONS] Routine Comment: Consulting Provider: BISI HUERTA Physician Instructions: Reason For Exam: TIA 09/23/17 20:59 Occupational Therapy Evaluate and Treat [CONS] Routine Comment: Reason For Exam: Neuro deficits Physical Therapy Evaluation and Treat [CONS] Routine Comment: Reason For Exam: Neuro deficits Primary care physician: [employer] Hospitalization Condition: Stable Time spent for discharge: 33 min Core Measure Documentation - Palliative Care Palliative Care/ Comfort Measures: Not Applicable - Core Measures Any of the following diagnoses?: none Exam - Constitutional Vitals: Temp Pulse Resp BP Pulse Ox 98.1 F 61 17 126/68 99 09/26/17 08:40 09/26/17 09:46 09/26/17 09:47 09/26/17 09:46 09/26/17 08:40 General appearance: Present: no acute distress, well-nourished - EENT Eyes: Present: PERRL, EOM intact - Neck Neck: Present: supple, normal ROM - Respiratory Respiratory effort: normal Respiratory: bilateral: diminished, negative: rales, rhonchi, wheezing - Cardiovascular Rhythm: regular Heart Sounds: Present: S1 & S2 - Extremities Extremities: no ischemia, No edema, abnormal (left wrist weakness) - Abdominal General gastrointestinal: Present: soft, non-tender, non-distended, normal bowel sounds - Integumentary Integumentary: Present: clear, warm - Musculoskeletal Musculoskeletal: strength equal bilaterally, generalized weakness - Psychiatric Psychiatric: appropriate mood/affect - Neurologic Neurologic: CNII-XII intact, moves all extremities, other (left hand and lt wrist weakness) Plan Activity: no restrictions Diet: regular Additional Instructions: Advised 2 days work excuse Follow up with: CAREY ABEBE MD [Primary Care Provider] - 3-5 Days BISI HUERTA MD [Staff Physician] - 7 Days Prescriptions: amLODIPine [Norvasc] 10 mg PO DAILY #30 tablet Aspirin [Aspirin BABY CHEW TAB] 81 mg PO QDAY #30 tab.chew Losartan [Cozaar] 50 mg PO QDAY #30 tablet
[2017-09-26] MEDS: COZAAR PO SCH (10:54)
[2017-09-26 17:36] VITALS: BP 131/83
== END 2017-09-26 18:40 | disposition home or self-care (01) | DRG 66 ==
LOC: ED 11:06 → 4A 14:59
PROVIDERS: ADMIT Internal Medicine; ATTEND Internal Medicine
DX: I63.9 Cerebral infarction, unspecified (principal); R29.818 Other symptoms and signs involving the nervous system; I10 Essential (primary) hypertension; F19.10 Other psychoactive substance abuse, uncomplicated; G83.24 Monoplegia of upper limb affecting left nondominant side; F14.90 Cocaine use, unspecified, uncomplicated; Z71.51 Drug abuse counseling and surveillance of drug abuser; Z72.89 Other problems related to lifestyle
CPT/HCPCS: 36415; 70450; 70544; 70551; 80053; 80061; 80307; 80320; 81001; 83036; 84484; 85025; 85610; 93005; 93010; 93306; 93880; A9270-GY; G0480; J1650; J7030

== ENCOUNTER 2018-01-03 14:41 | Emergency (ER) | payer OTHER ==
--- NOTE | 2018-01-03 17:21 | XRay Report ---
FINAL REPORT EXAM: XR CHEST ROUTINE 2V HISTORY: cold cough TECHNIQUE: PA and lateral views of the chest Comparison: None FINDINGS: There is no evidence of infiltrate, pneumothorax or pleural fluid collection. There is an approximately 6.6 millimeter nodular density in the right lower lobe that is nonspecific in appearance. The cardiomediastinal silhouette is normal in appearance. The bony structures are notable for mild dextrocurvature of the thoracic spine. IMPRESSION: 1. No evidence of an acute pulmonary process. 2. Approximately 6.6 millimeter nonspecific nodular density right lower lobe. CT of the chest is recommended for further evaluation.
[2018-01-03] MEDS ORDERED: PROVENTIL IH ONE (18:42)
[2018-01-03] MEDS ORDERED: NACL 0.9% 1000 ML 1,000 ML IV ONE (18:42)
[2018-01-03] MEDS ORDERED: ATROVENT IH ONE (18:42)
[2018-01-03] MEDS ORDERED: DECADRON IV ONE (18:42)
[2018-01-03 19:23] LABS: Basophils # (Auto) 0.1 K/mm3 (0.0-0.1); Basophils % (Auto) 1.1 % (0.0-1.8); Eosinophils # (Auto) 0.8 K/mm3 (0.0-0.4); Eosinophils % (Auto) 12.7 % (0.0-4.3); Hematocrit 42.4 % (35.5-45.6); Hemoglobin 14.2 gm/dl (11.8-15.2); Lymphocytes # (Auto) 1.3 K/mm3 (1.2-5.4); Lymphocytes % (Auto) 20.1 % (13.4-35.0); Mean Corpuscular HGB Conc 33 % (32-34); Mean Corpuscular Hemoglobin 33 pg (28-32); Mean Corpuscular Volume 98 fl (84-94); Monocytes % (Auto) 14.6 % (0.0-7.3); Red Blood Count 4.34 M/mm3 (3.65-5.03); Red Cell Distribution Width 13.6 % (13.2-15.2)
[2018-01-03 19:26] LABS: Platelet Count 212 K/mm3 (140-440)
--- NOTE | 2018-01-03 19:33 | Emergency Department Report ---
- General Chief Complaint: Upper Respiratory Infection Stated Complaint: WILLAM Time Seen by Provider: 01/03/18 18:07 Source: patient Mode of arrival: Ambulatory Limitations: No Limitations - History of Present Illness Initial Comments: This is a 47-year-old male nontoxic, well nourished in appearance, no acute signs of distress presents to the ED with c/o of productive cough, wheezing, rhinorrhea, nasal congestion x2 days. Patient describes productive cough as yellow mucus production. Patient denies any sick contact. Patient that he has been out of his blood pressure medication Norvasc 10 mg daily and albuterol inhaler. Patient denies any recent travels, long car, recent hospital stays. Patient denies any calf pain or calf tenderness. Patient denies any chest pain , short of breath, fever, chills, nausea, vomiting, hemoptysis, numbness, tingling, headache or stiff neck. Denies any allergies. PMH includes asthma and HTN. MD Complaint: cough, rhinorrhea, nasal congestion, other (wheezing) -: days(s) (2) Severity: mild Severity scale (0 -10): 0 Improves With: nothing Worsens With: nothing Associated Symptoms: rhinorrhea, nasal congestion, cough, other (wheezing). denies: fever, chills, myalgias, diaphoresis, headache, sore throat, stiff neck , chest pain, shortness of breath, abdominal pain, nausea, vomiting, diarrhea, dysuria, rash, confusion, right sweats, weight loss, epistaxis, hoarseness, ear pain - Related Data Previous Rx's Medication Instructions Recorded Last Taken Type Aspirin [Aspirin BABY CHEW TAB] 81 mg PO QDAY #30 tab.chew 09/26/17 Unknown Rx Losartan [Cozaar] 50 mg PO QDAY #30 tablet 09/26/17 Unknown Rx amLODIPine [Norvasc] 10 mg PO DAILY #30 tablet 09/26/17 Unknown Rx ALBUTEROL Inhaler(NF) [VENTOLIN 2 puff IH Q4-6H PRN #1 inha 01/03/18 Unknown Rx Inhaler(NF)] Azithromycin [Zithromax Z-RITESH] 250 mg PO DAILY #6 tablet 01/03/18 Unknown Rx Benzonatate [Tessalon Perle] 100 mg PO Q6H PRN 20 Days capsule 01/03/18 Unknown Rx Prednisone [predniSONE 10 mg 10 mg PO .TAPER #1 tab.ds.pk 01/03/18 Unknown Rx (6-Day Pack, 21 Tabs)] amLODIPine [Norvasc] 10 mg PO DAILY #30 tab 01/03/18 Unknown Rx Allergies Allergy/AdvReac Type Severity Reaction Status Date / Time No Known Allergies Allergy Unverified 09/23/17 11:09 ED Review of Systems ROS: Stated complaint: WILLAM Other details as noted in HPI Constitutional: denies: chills, fever Eyes: denies: eye pain, eye discharge, vision change ENT: denies: ear pain, throat pain Respiratory: cough, wheezing. denies: shortness of breath Cardiovascular: denies: chest pain, palpitations Endocrine: no symptoms reported Gastrointestinal: denies: abdominal pain, nausea, diarrhea Genitourinary: denies: urgency, dysuria Musculoskeletal: denies: back pain, joint swelling, arthralgia Skin: denies: rash, lesions Neurological: denies: headache, weakness, paresthesias Psychiatric: denies: anxiety, depression Hematological/Lymphatic: denies: easy bleeding, easy bruising ED Past Medical Hx - Past Medical History Hx Hypertension: Yes Hx Asthma: Yes Hx HIV: No - Surgical History Additional Surgical History: CATARACT - Social History Smoking Status: Never Smoker Substance Use Type: Alcohol - Medications Home Medications: Home Medications Medication Instructions Recorded Confirmed Last Taken Type Aspirin [Aspirin BABY CHEW TAB] 81 mg PO QDAY #30 tab.chew 09/26/17 Unknown Rx Losartan [Cozaar] 50 mg PO QDAY #30 tablet 09/26/17 Unknown Rx amLODIPine [Norvasc] 10 mg PO DAILY #30 tablet 09/26/17 Unknown Rx ALBUTEROL Inhaler(NF) [VENTOLIN 2 puff IH Q4-6H PRN #1 inha 01/03/18 Unknown Rx Inhaler(NF)] Azithromycin [Zithromax Z-RITESH] 250 mg PO DAILY #6 tablet 01/03/18 Unknown Rx Benzonatate [Tessalon Perle] 100 mg PO Q6H PRN 20 Days capsule 01/03/18 Unknown Rx Prednisone [predniSONE 10 mg 10 mg PO .TAPER #1 tab.ds.pk 01/03/18 Unknown Rx (6-Day Pack, 21 Tabs)] amLODIPine [Norvasc] 10 mg PO DAILY #30 tab 01/03/18 Unknown Rx ED Physical Exam - General Limitations: No Limitations General appearance: alert, in no apparent distress - Head Head exam: Present: atraumatic, normocephalic - Eye Eye exam: Present: normal appearance Pupils: Present: normal accommodation - ENT ENT exam: Present: normal exam, mucous membranes moist - Neck Neck exam: Present: normal inspection, full ROM. Absent: tenderness, meningismus, lymphadenopathy - Respiratory Respiratory exam: Present: normal lung sounds bilaterally, wheezes (bilatearl upper and lower lobes). Absent: respiratory distress, rales, rhonchi, stridor, chest wall tenderness, accessory muscle use, decreased breath sounds, prolonged expiratory - Cardiovascular Cardiovascular Exam: Present: regular rate, normal rhythm, normal heart sounds. Absent: irregular rhythm, systolic murmur, diastolic murmur, rubs, gallop - GI/Abdominal GI/Abdominal exam: Present: soft, normal bowel sounds. Absent: distended, tenderness, guarding, rebound, rigid, diminished bowel sounds - Rectal Rectal exam: Present: deferred - Extremities Exam Extremities exam: Present: normal inspection, full ROM, normal capillary refill. Absent: tenderness - Back Exam Back exam: Present: normal inspection, full ROM. Absent: tenderness, CVA tenderness (R), CVA tenderness (L), muscle spasm, paraspinal tenderness, vertebral tenderness, rash noted - Neurological Exam Neurological exam: Present: alert, oriented X3, normal gait - Psychiatric Psychiatric exam: Present: normal affect, normal mood - Skin Skin exam: Present: warm, dry, intact, normal color. Absent: rash ED Course Vital Signs 01/03/18 01/03/18 01/03/18 14:59 18:52 20:35 Temperature 98.9 F Pulse Rate 73 64 Pulse Rate [ 78 Posterior Bilateral Throughout] Respiratory 16 Rate Respiratory 22 Rate [Posterior Bilateral Throughout] Blood Pressure 147/68 [Left] O2 Sat by Pulse 100 Oximetry - Reevaluation(s) Reevaluation #1: 01/03/18 19:32 Patient is speaking in full sentences with no signs of distress noted. - Consultations Consultation #1: 01/03/18 20:10 Patient has been consulted with Dr. Darek V about patient history, physical exam, and labs/Xray results and can be discahrged with follow-up with PCP with xrays/CT scans. ED Medical Decision Making - Lab Data Result diagrams: 01/03/18 19:02 01/03/18 19:02 - Medical Decision Making This is a 47-year-old female that presents with bronchitis and asthma exacerbation. Patient is stable and was examined by me. Chest x-ray has been obtained and dictated by radiologist with 6.6 mm nodular mass. Patient has been discussed with Dr. Darek V and patient to be follow-up with a x-ray/CT outpatient. Patient is notified of x-ray results with no questions noted. Due to patient having symptoms of upper respiratory infection and worsening I will treat patient empirically with zpak. Patient was instructed to increase hydration, rest and take Motrin for fever episodes. Patient received motrin and tesslone perrls in the ED. Vitals stable. Patient is nonfebrile and normal heart rate. Patient was instructed Follow-up with a primary care doctor in 3-5 days or if symptoms worsen and continue return to emergency room as soon as possible. At time time of discharge, the patient does not seem toxic or ill in appearance. No acute signs of distress noted. Patient agrees to discharge treatment plan of care. No further questions noted by the patient. Critical care attestation.: If time is entered above; I have spent that time in minutes in the direct care of this critically ill patient, excluding procedure time. ED Disposition Clinical Impression: Bronchitis Asthma exacerbation Qualifiers: Asthma severity: mild Asthma persistence: intermittent Qualified Code(s): J45.21 - Mild intermittent asthma with (acute) exacerbation Disposition: DC-01 TO HOME OR SELFCARE Is pt being admited?: No Does the pt Need Aspirin: No Condition: Stable Instructions: Asthma (ED), Acute Bronchitis (ED) Additional Instructions: Follow-up with a primary care doctor in 3-5 days for abnormal Xray results of chest or if symptoms worsen and continue return to emergency room as soon as possible. Prescriptions: ALBUTEROL Inhaler(NF) [VENTOLIN Inhaler(NF)] 2 puff IH Q4-6H PRN #1 inha PRN Reason: Wheezing amLODIPine [Norvasc] 10 mg PO DAILY #30 tab Azithromycin [Zithromax Z-RITESH] 250 mg PO DAILY #6 tablet Benzonatate [Tessalon Perle] 100 mg PO Q6H PRN 20 Days capsule PRN Reason: Cough Prednisone [predniSONE 10 mg (6-Day Pack, 21 Tabs)] 10 mg PO .TAPER #1 tab.ds.pk Referrals: PRIMARY CARE, [Primary Care Provider] - 3-5 Days BISI TOM MD [Staff Physician] - 3-5 Days [facility] [Outside] - 3-5 Days [facility] [Outside] - 3-5 Days Forms: Work/School Release Form(ED)
[2018-01-03 19:37] LABS: BUN/Creatinine Ratio 10; Blood Urea Nitrogen 8 mg/dL (9-20); Calcium 9.1 mg/dL (8.4-10.2); Hemolysis Index 90
[2018-01-03 20:36] VITALS: BP 147/68
== END 2018-01-03 21:03 | disposition home or self-care (01) ==
LOC: ED 14:41
DX: J45.21 Mild intermittent asthma with (acute) exacerbation (principal); J40 Bronchitis, not specified as acute or chronic; I10 Essential (primary) hypertension; Z79.82 Long term (current) use of aspirin
CPT/HCPCS: 36415; 71046; 80048; 85025; 93005; 93010; 96374; 99284; J1100; 94640